=== PATIENT | female | born 1985 | race Caucasian/White ===

== ENCOUNTER 2017-09-25 20:52 | Emergency (ER) | payer OTHER ==
[~2017-09-25] VITALS: Ht 162.6 cm; Wt 121.1 kg
[~2017-09-25 20:52] MED LIST: ALBU90OI INH; Amoxicillin500 MG PO; BENZ100A PO; CYCL10 PO; Cyclobenzaprine5 MG PO; DOCU100 PO; ESTR.1TPW TOP; FLUC150A PO; IBUP600 PO; IBUP800 PO; KETO10; LISI20 PO; METF500 PO; METPRE4DP PO; Monodox100 MG PO; NAPR500ERA PO; Norco 10-325 T1 EACH PO; Norco 5-325 Ta1 EACH PO; OXYACE5T; OXYACE5T PO; OXYACE7.5T PO; PROCODE120 PO; Prednisone20 MG PO; QVAR7.3 G1 IH; TRAZ150T57 PO; TRAZ50; Zofran Odt4 MG SL; Zofran Odt8 MG SL
[2017-09-25] MEDS ORDERED: DEXT30SU PO (21:48)
[2017-09-25] MEDS ORDERED: Prednisone20 MG PO (21:48)
== END 2017-09-25 21:52 | disposition home or self-care (01) ==
LOC: ER 20:52
DX: J40 Bronchitis, not specified as acute or chronic (principal); Z79.899 Other long term (current) drug therapy
CPT/HCPCS: 99282

== ENCOUNTER 2017-12-29 17:52 | Emergency (ER) | payer OTHER ==
[~2017-12-29] VITALS: Ht 160 cm; Wt 125.2 kg
[~2017-12-29 17:52] MED LIST changes: +DEXT30SU PO
[2017-12-29 19:43] LABS: BASOPHILS ABSOLUTE AUTO 0.02 K/mm3 (0.00-0.23); BASOPHILS PERCENT AUTO 0 % (0-2); EOSINOPHILS ABSOLUTE AUTO 0.16 K/mm3 (0.00-0.68); EOSINOPHILS PERCENT AUTO 2 % (0-6); Hematocrit 37.8 % (33.0-51.0); Hemoglobin 12.8 g/dL (11.5-16.0); IMMATURE GRAN ABSOLUTE AUTO 0.01 K/mm3 (0.00-0.10); IMMATURE GRAN PERCENT AUTO 0 % (0-1); LYMPHOCYTES ABSOLUTE AUTO 2.39 K/mm3 (0.84-5.20); LYMPHOCYTES PERCENT AUTO 33 % (21-46); MONOCYTES PERCENT AUTO 10 % (4-13); Mean Corpuscular HGB 30.3 pg (26.0-34.0); Mean Corpuscular HGB Conc 33.9 g/dL (31.5-36.5); Mean Corpuscular Volume 89 fL (80-100); Mean Platelet Volume 9.6 fL (9.1-12.4); NEUTROPHILS ABSOLUTE AUTO 4.08 K/mm3 (1.96-9.15); NEUTROPHILS PERCENT AUTO 55 % (41-73); Platelet Count 277 K/mm3 (150-400); RDW Coefficient Variation 12.6 % (11.7-14.2); RDW Standard Deviation 40.9 fL (35.1-46.3); Red Blood Cell Count 4.23 M/mm3 (3.80-5.20); White Blood Cell Count 7.36 K/mm3 (4.00-11.30)
== END 2017-12-29 20:08 | disposition home or self-care (01) ==
LOC: ER 17:52
PROVIDERS: Physician Assistant
DX: R21 Rash and other nonspecific skin eruption (principal)
CPT/HCPCS: 36415; 85025; 99283

== ENCOUNTER → 2022-10-10 | Outpatient (CLI) | payer OTHER ==
[~2022-10-10] MED LIST changes: +FLUO10 PO; +HYDCHL25 PO; +Ondansetron Odt8 MG MM; +Protonix40 MG PO; +Veetids 500500 MG PO
== END | disposition home or self-care (01) ==
LOC: LAB 16:55 → LAB SHORT 16:55
DX: R05.9 Cough, unspecified (principal)
CPT/HCPCS: 87807

== ENCOUNTER 2023-05-27 19:04 | Emergency (ER) | payer OTHER ==
[~2023-05-27] VITALS: Ht 160 cm; Wt 140.6 kg
[~2023-05-27 19:04] MED LIST changes: +PANTOPRAZOLE SO40 M2 PO
[2023-05-27 19:09] VITALS: BP 219/126
== END 2023-05-27 20:00 | disposition home or self-care (01) ==
LOC: ER 19:04
DX: J06.9 Acute upper respiratory infection, unspecified (principal); Z79.899 Other long term (current) drug therapy
CPT/HCPCS: 99285

== ENCOUNTER 2024-02-06 17:08 | Emergency (ER) | payer OTHER ==
[~2024-02-06] VITALS: Ht 162.6 cm; Wt 127.0 kg
[2024-02-06 20:00] VITALS: BP 151/81
== END 2024-02-06 21:59 | disposition home or self-care (01) ==
LOC: ER 17:08
DX: B34.9 Viral infection, unspecified (principal); K64.4 Residual hemorrhoidal skin tags; R19.7 Diarrhea, unspecified; E28.2 Polycystic ovarian syndrome; Z79.899 Other long term (current) drug therapy; Z90.2 Acquired absence of lung [part of]

== ENCOUNTER 2024-11-05 08:39 | Emergency (ER) | payer OTHER ==
[~2024-11-05] VITALS: Ht 160 cm; Wt 131.5 kg
[~2024-11-05 08:39] MED LIST changes: +GUAI600T33 PO; +PRED20 PO; +Preparation H26 GM TOP
[2024-11-05] MEDS ORDERED: Albuterol 2.5 MG/3 ML VIAL INH SCH (09:20)
[2024-11-05] MEDS ORDERED: MethylPREDNISolone Sod Succ 125 MG Vial IV ONE (09:20)
[2024-11-05 09:51] LABS: BASOPHILS ABSOLUTE AUTO 0.03 K/mm3 (0.00-0.23); BASOPHILS PERCENT AUTO 0 % (0-2); EOSINOPHILS ABSOLUTE AUTO 0.23 K/mm3 (0.00-0.68); EOSINOPHILS PERCENT AUTO 3 % (0-6); Hematocrit 38.7 % (33.0-51.0); Hemoglobin 12.5 g/dL (11.5-16.0); IMMATURE GRAN ABSOLUTE AUTO 0.02 K/mm3 (0.00-0.10); IMMATURE GRAN PERCENT AUTO 0 % (0-1); LYMPHOCYTES ABSOLUTE AUTO 1.08 K/mm3 (0.84-5.20); LYMPHOCYTES PERCENT AUTO 14 % (21-46); MONOCYTES ABSOLUTE AUTO 0.43 K/mm3 (0.16-1.47); MONOCYTES PERCENT AUTO 6 % (4-13); Mean Corpuscular HGB 27.3 pg (26.0-34.0); Mean Corpuscular HGB Conc 32.3 g/dL (31.5-36.5); Mean Corpuscular Volume 85 fL (80-100); Mean Platelet Volume 9.7 fL (9.1-12.4); NEUTROPHILS ABSOLUTE AUTO 5.72 K/mm3 (1.96-9.15); NEUTROPHILS PERCENT AUTO 76 % (41-73); Platelet Count 256 K/mm3 (150-400); RDW Coefficient Variation 13.1 % (11.7-14.2); RDW Standard Deviation 40.2 fL (35.1-46.3); Red Blood Cell Count 4.58 M/mm3 (3.80-5.20); White Blood Cell Count 7.51 K/mm3 (4.00-11.30)
[2024-11-05 10:10] LABS: Bun/Creatinine Ratio 15.2 (12.0-20.0); Creatinine, Blood 0.85 mg/dL (0.40-1.00); Potassium, Blood 3.7 mmol/L (3.5-5.5)
[2024-11-05 11:21] LABS: CORONAVIRUS COVID-19 AG Negative (NEGATIVE); INFLUENZA A AG Negative (NEGATIVE); INFLUENZA B AG Negative (NEGATIVE)
[2024-11-05] MEDS ORDERED: ALBU90OI INH (13:22)
[2024-11-05] MEDS ORDERED: PRED20 PO (13:22)
[2024-11-05 13:54] VITALS: BP 166/99
[2024-11-08] MEDS ORDERED: Prednisone10 MG PO (13:46)
[2024-11-08] MEDS ORDERED: Flonase 0.05% N16 GM (13:51)
[2024-11-08] MEDS ORDERED: GUAI600T33 PO (13:51)
[2024-11-08] MEDS ORDERED: AZIT250 PO (13:51)
[2024-11-08] MEDS ORDERED: LACT (13:52)
[2024-11-08] MEDS ORDERED: LACT PO (13:53)
[2024-11-08] MEDS ORDERED: BENZ100A PO (13:53)
[2024-11-08] MEDS ORDERED: LOSA50 PO (14:11)
[2024-11-08] MEDS ORDERED: OSEL75CA PO (14:11)
== END 2024-11-05 13:55 | disposition home or self-care (01) ==
LOC: ER 08:39
PROVIDERS: Emergency Medicine
DX: R06.02 Shortness of breath (principal); Z79.899 Other long term (current) drug therapy; Z79.52 Long term (current) use of systemic steroids
CPT/HCPCS: 71045; 80048; 85025; 87428-QW; 93005; 93010; 94644; 94664; 96374; 99285-25; J2919

== ENCOUNTER 2024-12-14 06:52 | Day surgery (SDC) | payer OTHER ==
[~2024-12-14] VITALS: Ht 160 cm; Wt 142.5 kg
[~2024-12-14 06:52] MED LIST changes: +AZIT250 PO; +Flonase 0.05% N16 GM; +LACT; +LACT PO; +LOSA50 PO; +Lactated Ringer's 1,000 ML IV SCH; +OSEL75CA PO; +Prednisone10 MG PO
[2024-12-14 07:29] VITALS: BP 137/76
--- NOTE | 2024-12-14 07:30 | NUR ---
Ambulatory in Day Surgery. History, Chart, Medications and Allergies reviewed before start of procedure. Lungs clear T/O to Auscultation. Patient confirms NPO status and agrees with scheduled surgery. Pre-Op teaching done. Pt verbalizes understanding. Patient States Post-Procedure ride home has been arranged.
[2024-12-14] MEDS ORDERED: propofoL 40 ML IV ONE (07:45)
[2024-12-14] MEDS ORDERED: propofoL 20 ML IV ONE (08:08)
--- NOTE | 2024-12-14 08:10 | NUR ---
12/14/24 0810 Janey Nickerson History, Chart, Medications and Allergies reviewed before start of procedure.DR DONATO PROVIDING ANESTHESIA SEE RECORDS
[2024-12-14 08:34] VITALS: BP 125/67
[2024-12-14 08:42] VITALS: BP 135/85
--- NOTE | 2024-12-14 09:02 | NUR ---
DISCHARGE PT A&OX4/VSS/RA/TALKING/PLEASANT, DENIES NAUSEA/PABLO PO H20, PAIN TOLERABLE/ INTERMITTENT CRAMPING - IMPROVING, IV DC'D, DC INS PROVIDED, PT REP UNDERSTANDING THOSE INSTRUCTIONS, LEFT VIA WC WITH DC VOL WITH PERSONAL POSSESSIONS TO GO HOME WITH TRANSPORT/FRIEND.
== END 2024-12-14 23:00 | disposition home or self-care (01) ==
LOC: ORSCMMR 06:52 → ORD 08:00 → ORSCMMR 08:00
PROVIDERS: Internal Medicine Gastroenterology
PROC: 0DBK8ZX Excision of Ascending Colon, Via Natural or Artificial Opening Endoscopic, Diagnostic (ICD-10-PCS; principal; 2024-12-14 08:00)
PROC: 0DBM8ZX Excision of Descending Colon, Via Natural or Artificial Opening Endoscopic, Diagnostic (ICD-10-PCS; principal; 2024-12-14 08:00)
DX: K62.5 Hemorrhage of anus and rectum (principal); R10.9 Unspecified abdominal pain; D12.2 Benign neoplasm of ascending colon; D12.4 Benign neoplasm of descending colon; K57.30 Diverticulosis of large intestine without perforation or abscess without bleeding; K76.9 Liver disease, unspecified; G47.33 Obstructive sleep apnea (adult) (pediatric); I10 Essential (primary) hypertension; K76.0 Fatty (change of) liver, not elsewhere classified; E66.01 Morbid (severe) obesity due to excess calories; Z68.43 Body mass index [BMI] 50.0-59.9, adult; Z79.899 Other long term (current) drug therapy
CPT/HCPCS: 88305; J2704; J7120

== ENCOUNTER 2025-06-28 19:26 | Emergency (ER) | payer OTHER ==
[~2025-06-28] VITALS: Ht 160 cm; Wt 142.9 kg
[~2025-06-28 19:26] MED LIST changes: -Lactated Ringer's 1,000 ML IV SCH
[2025-06-28 20:16] LABS: BASOPHILS ABSOLUTE AUTO 0.05 K/mm3 (0.00-0.23); BASOPHILS PERCENT AUTO 1 % (0-2); EOSINOPHILS ABSOLUTE AUTO 0.22 K/mm3 (0.00-0.68); EOSINOPHILS PERCENT AUTO 2 % (0-6); Hematocrit 37.5 % (33.0-51.0); Hemoglobin 12.2 g/dL (11.5-16.0); IMMATURE GRAN ABSOLUTE AUTO 0.09 K/mm3 (0.00-0.10); IMMATURE GRAN PERCENT AUTO 1 % (0-1); LYMPHOCYTES ABSOLUTE AUTO 2.57 K/mm3 (0.84-5.20); LYMPHOCYTES PERCENT AUTO 28 % (21-46); MONOCYTES ABSOLUTE AUTO 0.50 K/mm3 (0.16-1.47); MONOCYTES PERCENT AUTO 5 % (4-13); Mean Corpuscular HGB Conc 32.5 g/dL (31.5-36.5); Mean Corpuscular Volume 80 fL (80-100); NEUTROPHILS ABSOLUTE AUTO 5.81 K/mm3 (1.96-9.15); NEUTROPHILS PERCENT AUTO 63 % (41-73); NRBC ABSOLUTE 0.02 K/mm3 (0.00-0.02); NRBC Auto 0.2 /100 WBC (0.0-0.2); RDW Coefficient Variation 13.5 % (11.7-14.2); RDW Standard Deviation 38.7 fL (35.1-46.3)
[2025-06-28 20:18] LABS: Alanine Aminotransfer (ALT/SGP 24.0 U/L (12-78); Albumin, Blood 2.9 g/dL (3.4-5.0); Albumin/Globulin Ratio 0.7 (0.8-1.8); Anion Gap 7.0 mmol/L (3-11); Aspartate Aminotrans (AST/SGOT 37.0 U/L (12-37); Bilirubin, Total 0.3 mg/dL (0.1-1.0); Blood Urea Nitrogen 11.0 mg/dL (8-24); CO2, Blood 25.0 mmol/L (21-32); Calcium, Blood 8.8 mg/dL (8.5-10.1); Chloride, Blood 110.0 mmol/L (98-108); Creatinine, Blood 0.91 mg/dL (0.40-1.00); Globulin, Blood 4.1 g/dL (2.2-4.0); Glucose, Blood 143.0 mg/dL (70-99); Potassium, Blood 4.3 mmol/L (3.5-5.5); Sodium, Blood 138.0 mmol/L (136-145); Total Protein, Blood 7.0 g/dL (6.4-8.2)
[2025-06-28 21:16] LABS: Source, Urine Clean Catch
[2025-06-28 21:25] LABS: Bilirubin, Urine Neg (Neg); Glucose Qualitative, Urine Neg (Neg); Ketones, Urine Neg (Neg); Leukocyte Esterase, Urine Neg (Neg); Protein, Urine 1+ (Neg); Specific Gravity, Urine 1.010 (1.003-1.022); Urobilinogen, Urine NORM (Normal)
[2025-06-28 21:37] LABS: Color, Urine Pale Yellow (P-Yellow)
[2025-06-29 00:10] VITALS: BP 154/71
== END 2025-06-29 00:28 | disposition home or self-care (01) ==
LOC: ER 19:26
PROVIDERS: Student in an Organized Health Care Education/Training Program
DX: R06.02 Shortness of breath (principal); R10.A2 Flank pain, left side; K21.9 Gastro-esophageal reflux disease without esophagitis; Z79.899 Other long term (current) drug therapy
CPT/HCPCS: 71046; 74177; 80053; 83690; 84484; 85025; 93005; 93010; 99284-25; Q9967